=== PATIENT | male | born 1950 | race Hispanic/Latino ===

== ENCOUNTER 2020-03-23 06:04 | Day surgery (SDC) | payer OTHER ==
[2020-03-19 14:38] LABS: BASOPHILS % (AUTO) 0.5 % (0.0-5.0); EOSINOPHILS % (AUTO) 7.9 % (0.0-8.0); HEMATOCRIT 41.7 % (42-54); LYMPHOCYTES % (AUTO) 29.3 % (21.0-51.0); MEAN CORPUSCULAR HEMOGLOBIN 31.5 pg (27.0-33.0); MEAN CORPUSCULAR VOLUME 90.1 fL (79-99); MONOCYTES % (AUTO) 4.9 % (3.0-13.0); NEUTROPHILS % (AUTO) 57.1 % (40.0-77.0); PLATELET COUNT (AUTO) 150 K/uL (130-400); RED BLOOD CELL COUNT(AUTO) 4.63 MIL/uL (4.50-6.20); RED CELL DISTRIBUTION WIDTH 12.9 % (11.0-15.5); WHITE BLOOD COUNT (AUTO) 7.3 K/uL (4.8-10.8)
[2020-03-19 14:40] LABS: APPEARANCE,URINE Clear (CLEAR); BILIRUBIN,URINE Negative (NEGATIVE); COLOR,URINE Yellow (YELLOW); GLUCOSE, URINE (UA) Negative (NEGATIVE); KETONES,URINE Negative (NEGATIVE); LEUKOCYTE ESTERASE ,URINE Negative (NEGATIVE); NITRATE,URINE Negative (NEGATIVE); OCCULT BLOOD,URINE Negative (NEGATIVE); PROTEIN,URINE Negative (NEGATIVE); UROBILINOGEN,URINE 0.2 mg/dL (0.2-1.0)
[2020-03-19 14:47] LABS: CREATININE 0.9 mg/dL (0.5-1.5); POTASSIUM 3.6 mmol/L (3.5-5.1)
[2020-03-19 14:52] LABS: INR 0.97 (0.85-1.15); PARTIAL THROMBOPLASTIN TIME 28.9 SEC (26.3-35.5); PROTHROMBIN TIME 10.5 SEC (9.6-11.6)
[2020-03-22 12:10] VITALS: BP 179/87
[~2020-03-23] VITALS: Ht 157.5 cm; Wt 60.2 kg
[2020-03-23] VITALS (14 sets, daily range): BP systolic 132–162; BP diastolic 53–78
[~2020-03-23 06:04] MED LIST: BENZ-51 PO; LISI10TA7 PO; SODIUM CHLORIDE 0.9% 500ML 500 ML IV SCH
--- NOTE | 2020-03-23 06:05 | NUR ---
PATIENT ARRIVED TO DAY PATIENT ACCOMPANIED BY SELF. PATIENT AAOX3, RESPIRATIONS UNLABORED, VITAL SIGNS STABLE. PROCEDURE VERIFIED WITH PATIENT AND CONFIRMED.
[2020-03-23] MEDS ORDERED: SODIUM CHLORIDE 0.9% 1000ML 1,000 ML IV ONE (07:04)
[2020-03-23] MEDS ORDERED: NICARDIPINE HCL 25 MG/10 ML ML IV ONE (07:21)
[2020-03-23] MEDS ORDERED: IOHEXOL-350 50ML VIAL IV ONE (07:23)
[2020-03-23] MEDS ORDERED: LIDOCAINE HCL 2% 20ML ONE (07:23)
[2020-03-23] MEDS ORDERED: IOHEXOL 350 MG/ML 100ML INFUS..BTL IV ONE (07:23)
[2020-03-23] MEDS ORDERED: HEPARIN SODIUM 1000UNIT/ML 10ML VIAL ONE (07:23)
[2020-03-23] MEDS ORDERED: NITROGLYCERIN 2 MG/VIAL VIAL IV ONE (07:23)
[2020-03-23] MEDS ORDERED: FENTANYL CITRATE PF 50 MCG/1 ML 2ML VIAL ONE (07:23)
[2020-03-23] MEDS ORDERED: MIDAZOLAM HCL 1 MG/ML 2ML VIAL ONE (07:23)
--- NOTE | 2020-03-23 07:25 | NUR ---
PATIENT TRANSFERRED TO [employer] VIA BED BY MAHAMED GANT RN.
[2020-03-23] MEDS ORDERED: BENZONATATE 100 MG CAPSULE PO PRN (08:30)
[2020-03-23] MEDS ORDERED: LISINOPRIL 10 MG TABLET PO SCH (09:00)
[2020-03-23] MEDS ORDERED: LISI-613 PO (09:49)
[2020-03-23] MEDS ORDERED: MAGNESIUM 2GM PREMIX 50ML 50 ML IV PRN (13:30)
[2020-03-23] MEDS ORDERED: POTASSIUM CHLORIDE 20MEQ/100ML 100 ML IV PRN (13:30)
[2020-03-23] MEDS ORDERED: GLUCAGON 1MG KIT 1 MG ML IM PRN (13:30)
[2020-03-23] MEDS ORDERED: DEXTROSE 50%-WATER 50 ML DISP.SYRIN IV PRN (13:30)
--- NOTE | 2020-03-23 16:06 | NUR ---
HANDOFF REPORT GIVEN TO JASWINDER GALICIA AT BEDSIDE USING SBAR.
--- NOTE | 2020-03-23 17:00 | NUR ---
PT AAOX3, NO DISTRESS. NO C/O PAIN TO RT GROIN, DRESSING D/I NO ACTIVE BLEEDING OR HEMATOMA. PT IV D/C , CATHETER INTACT. PT DRESSED, INSTRUCTIONS GIVEN TO SON, VERBALIZED UNDERSTANDING. PT TAKEN TO CAR VIA WHEELCHAIR , DRIVEN HOME BY SON.
== END 2020-03-23 17:00 | disposition home or self-care (01) ==
LOC: DAH 06:04 → UNDOADMIN 06:05 → DAH 06:05 → DAHIP 06:05 → DAH 17:00
PROVIDERS: ATTEND Internal Medicine Cardiovascular Disease
DX: I35.0 Nonrheumatic aortic (valve) stenosis (principal); I25.10 Atherosclerotic heart disease of native coronary artery without angina pectoris; I10 Essential (primary) hypertension; Z86.59 Personal history of other mental and behavioral disorders; Z79.899 Other long term (current) drug therapy; Z79.02 Long term (current) use of antithrombotics/antiplatelets; Z79.84 Long term (current) use of oral hypoglycemic drugs; Z87.891 Personal history of nicotine dependence
CPT/HCPCS: 36415; 71045; 80048; 81003; 85025; 85610; 85730; 93005; 93454; 93880; A4215; A4216; A4221; A4222; A4223 ×3; A4606; A4663; C1760; C1894 ×2; J1644; J2250; J3010; J3490 ×2; J7030; Q9967; 99156; 99157

== ENCOUNTER → 2020-04-01 | Outpatient (CLI) | payer OTHER ==
[~2020-04-01] VITALS: Ht 157.5 cm; Wt 61.7 kg
[~2020-04-01] MED LIST changes: +CEFUROXIME SODIUM 1.5 GM VIAL IVP SCH; +LISI-613 PO; -LISI10TA7 PO; -SODIUM CHLORIDE 0.9% 500ML 500 ML IV SCH
[2020-04-01 15:30] LABS: BASOPHILS % (AUTO) 0.6 % (0.0-5.0); EOSINOPHILS % (AUTO) 4.7 % (0.0-8.0); HEMATOCRIT 40.1 % (42-54); MEAN CORPUSCULAR HEMOGLOBIN 31.2 pg (27.0-33.0); MEAN CORPUSCULAR HGB CONC 34.7 g/dL (32.0-36.0); MEAN CORPUSCULAR VOLUME 89.9 fL (79-99); MONOCYTES % (AUTO) 4.4 % (3.0-13.0); PLATELET COUNT (AUTO) 136 K/uL (130-400); RED BLOOD CELL COUNT(AUTO) 4.46 MIL/uL (4.50-6.20); RED CELL DISTRIBUTION WIDTH 12.4 % (11.0-15.5)
[2020-04-01 15:42] LABS: INR 0.95 (0.85-1.15); PARTIAL THROMBOPLASTIN TIME 28.6 SEC (26.3-35.5); PROTHROMBIN TIME 10.3 SEC (9.6-11.6)
[2020-04-01 15:44] LABS: ALBUMIN 3.9 g/dL (3.5-5.0); BILIRUBIN,TOTAL 0.4 mg/dL (0.2-1.0); CREATININE 0.9 mg/dL (0.5-1.5); POTASSIUM 3.7 mmol/L (3.5-5.1); TOTAL PROTEIN, SERUM 7.4 g/dL (6.0-8.3)
[2020-04-01 16:15] VITALS: BP 186/64
--- NOTE | 2020-04-01 16:22 | NUR ---
RE: ABNORMAL CHEST XRAY AZAM DONOVAN RN AWARE OF ABNORMAL CHEST XRAY RESULTS. WILL WAIT FOR COVID NASOPHARYNGEAL SWAB RESULTS BEFORE PROCEEDING WITH SCHEDULED SURGERY.
[2020-04-01 16:53] LABS: HEMOGLOBIN A1C 5.5 % (4.0-6.0)
== END | disposition home or self-care (01) ==
LOC: LAB 05:00 → EDSTATUS 04-05 10:30
PROVIDERS: ATTEND Thoracic Surgery (Cardiothoracic Vascular Surgery)
DX: Z01.818 Encounter for other preprocedural examination (principal); I35.0 Nonrheumatic aortic (valve) stenosis; M47.814 Spondylosis without myelopathy or radiculopathy, thoracic region
CPT/HCPCS: 36415; 71046; 80053; 83036; 85025; 85610; 85730; 86850; 86900; 86901; 93005; 94010; A6260; U0003; 86922